=== PATIENT | male | born 1945 | race Two or more races ===

== ENCOUNTER 2018-12-10 07:20 | Day surgery (SDC) | payer OTHER | END 2018-12-10 12:41 | disposition home or self-care (01) | LOC: AMB-ENDOS 07:20 | DX: D12.2 Benign neoplasm of ascending colon (principal); D12.3 Benign neoplasm of transverse colon ==

== ENCOUNTER 2022-09-07 10:01 | Inpatient (IN) | payer OTHER ==
[~2022-09-07] VITALS: Ht 170.2 cm; Wt 69.4 kg
[2022-09-11] MEDS ORDERED: METFORMIN HCL1000 M3 (14:26)
[2022-09-11] MEDS ORDERED: PREDNISONE10 M2 (14:26)
[2022-09-11] MEDS ORDERED: AMLODIPINE-BEN1 EAC5 (14:26)
[2022-09-11] MEDS ORDERED: FLONASE16 GM (14:26)
[2022-09-11] MEDS ORDERED: ATORVASTATIN CA40 MG (14:26)
[2022-09-11] MEDS ORDERED: ST. JOSEPH ASPI81 M2 (14:26)
[2022-09-11] MEDS ORDERED: AZELASTINE137 MCG/0. (14:26)
[2022-09-11] MEDS ORDERED: TAMSULOSIN HCL0.4 MG (14:26)
[2022-09-11] MEDS ORDERED: TRAZODONE HCL100 MG (14:26)
[2022-09-14] MEDS ORDERED: HYOSCYAMINE0.125 M1 SL (12:15)
[2022-09-14] MEDS ORDERED: TRAM1TAB98 PO (12:16)
[2022-09-14] MEDS ORDERED: PROTONIX40 MG PO (12:16)
== END 2022-09-14 15:14 | disposition home or self-care (01) | DRG 331 ==
LOC: O/R 09-11 07:01 → SURH 09-11 07:01
PROVIDERS: ADMIT Surgery; ATTEND Surgery
PROC: 4A12X4Z Monitoring of Cardiac Electrical Activity, External Approach (ICD-10-PCS; 2022-09-11)
PROC: 0DTG4ZZ Resection of Left Large Intestine, Percutaneous Endoscopic Approach (ICD-10-PCS; principal; 2022-09-11 11:00)
DX: D12.3 Benign neoplasm of transverse colon (principal); R59.0 Localized enlarged lymph nodes; Z20.822 Contact with and (suspected) exposure to COVID-19; I11.9 Hypertensive heart disease without heart failure; E11.9 Type 2 diabetes mellitus without complications; G47.30 Sleep apnea, unspecified; D64.9 Anemia, unspecified